=== PATIENT | male | born 1955 | race Caucasian/White ===

== ENCOUNTER 2016-07-05 14:24 | Inpatient (IN) | payer OTHER ==
[~2016-07-05] VITALS: Ht 177.8 cm; Wt 107.0 kg
--- NOTE | ~2016-07-05 | EKG ---
[address] [address] ELECTROCARDIOGRAM REPORT Name: RIO POTTER Room #: 208-P ADM IN M.R.#: [id number] Admission: 07/05/16 Attend Phys: Lyndsay Donis MD Discharge: Date of : 55 Report #: [id number] THIS REPORT FOR: //name// [facility] ED Test Date: 2016-07-05 Test Time: 17:11:35 Pat Name: RIO HUMOND Department: Room: 208 Gender: M Tone Cabinet Assembler: MZOOK : 1955 Requested By: Aileen Musa Order Number: [id number] MD: Jabier Marino Measurements Intervals [place] Rate: 67 P: 23 IL: 111 QRS: 6 QRSD: 93 T: 10 QT: 427 QTc: 451 Interpretive Statements Sinus rhythm Borderline short IL interval Compared to ECG 07/05/2016 14:29:29 No significant change Electronically Signed On 07-06-2016 16:39:24 CARE ATTENDANT by Jabier Marino [email or web address] <ELECTRONICALLY SIGNED> By: Jabier Marino MD 07/06/16 1639 1711 1711 Jabier Marino MD /SINDHU
--- NOTE | ~2016-07-05 | 2DMMODE ---
[facility] [place] [address] 2 D/M-MODE ECHOCARDIOGRAM Name: TARIQRIO PETTY Room #: 208-P [facility] IN .R.#: [id number] Admission: 07/05/16 Attend Phys: Lyndsay Donsi Discharge: Date of : 55 Date of Service: 07/06/16 0845 Report #: [id number] THIS REPORT FOR: //name// Transthoracic Echocardiography Ordering physician: Lyndsay Donis Referring physician: Debra Palacios Nikoloz G. Customs Manager: Sharona Mcfarland Indications/History: Chest pain. Hx: HLP, family history BP: 117 / HR: 70bpm Height: 70in Weight: 235.5lb 75 Study data: M-mode, complete 2D, complete spectral Doppler, and color Doppler. Location: Echo laboratory. [employer]. Image quality was adequate. 2D measurements Normal Normal LVID ED 52.7mm 36-57 IVS ED 9.7mm 6-11 LVID ES 39.8mm 23-40 LVPW ED 10mm 6-11 LA volume 28ml/m2 16-28 AoRoot diam 35.4mm 21-37 index ED LVOT diameter 21mm 18-23 Findings: Left ventricle: The cavity size was normal. Wall thickness was normal. Systolic function was mildly reduced. The estimated ejection fraction was in the range of 45% to 50%. Right ventricle: The cavity size was normal. Systolic function was normal. Right atrium: The atrium was normal in size. Left atrium: The atrium was normal in size. Volume index: 28ml/m2 (S). Aortic valve: Structurally normal valve. Doppler: There was no stenosis. Trivial regurgitation. Peak velocity: 145.7cm/s (S). Mitral valve: Structurally normal valve. Doppler: [facility] [address] [place] [address] 2 D/M-MODE ECHOCARDIOGRAM Name: RIO POTTER Room #: 208-P [facility] IN M.José.#: [id number] Admission: 07/05/16 Attend Phys: Lyndsay Donis Discharge: Date of : 55 Date of Service: 07/06/16 0845 Report #: [id number] There was no evidence for stenosis. Trivial regurgitation. Peak E-wave velocity: 85.7cm/s. Peak gradient: 2.9mm Hg (D). Peak A-wave velocity: 68.5cm/s. Tricuspid valve: Structurally normal valve. Doppler: There was no evidence for stenosis. Trivial regurgitation. Regurgitant peak velocity: 204.6cm/s. Peak RV-RA gradient: 17mm Hg (S). Pulmonic valve: Structurally normal valve. Doppler: There was no evidence for stenosis. Trivial regurgitation. Pericardium: There was no pericardial effusion. Aorta: Aortic root: The aortic root was normal in size. Pulmonary artery: Systolic pressure was estimated to be 22mm Hg. Diastolic function: Features are consistent with a pseudonormal left ventricular filling pattern, with concomitant abnormal relaxation and increased filling pressure (grade 2 diastolic dysfunction). Systemic veins: Inferior vena cava: The vessel was normal in size; the respirophasic diameter changes were in the normal range (= 50%). Conclusions 1. Left ventricle: The cavity size was normal. Wall thickness was normal. Systolic function was mildly reduced. The estimated ejection fraction was in the range of 45% to 50%. 2. Right ventricle: The cavity size was normal. 3. Left atrium: The atrium was normal in size. 4. Aortic valve: Structurally normal valve. Trivial regurgitation. 5. Mitral valve: Structurally normal valve. Trivial regurgitation. 6. Tricuspid valve: Trivial regurgitation. 7. Pericardium, extracardiac: There was no pericardial effusion. <ELECTRONICALLY SIGNED> By: Jabier Marino MD 07/06/16 1512 0845 11 Jabier Marino MD /xenia
--- NOTE | ~2016-07-05 | EKG ---
[address] [address] ELECTROCARDIOGRAM REPORT Name: RIO POTTER Room #: 170-9 ADM IN M.R.#: [id number] Admission: 07/05/16 Attend Phys: Lyndsay Donis MD Discharge: Date of : 55 Report #: [id number] THIS REPORT FOR: //name// [facility] ED Test Date: 2016-07-05 Test Time: 14:29:29 Pat Name: RIO POTTER Department: Room: 170 Gender: M Telemarketing Supervisor: Conrado ANDERSON RN : 1955 Requested By: Aileen Musa Order Number: [id number] MD: Jabier Marino Measurements Intervals [place] Rate: 81 P: 21 IL: 112 QRS: -6 QRSD: 111 T: 17 QT: 367 QTc: 426 Interpretive Statements Sinus rhythm Borderline short IL interval Inferior infarct, old No previous ECG available for comparison Electronically Signed On 07-05-2016 17:04:05 NUCLEAR MEDICINE MEDICAL DIRECTOR by Jabier Marino [email or web address] <ELECTRONICALLY SIGNED> By: Jabier Marino MD 07/05/16 1704 1429 1429 Jabier Marino MD /SINDHU
--- NOTE | ~2016-07-05 | H ---
[facility] [place] [address] HISTORY AND PHYSICAL Name: TARIQ,RIO PETTY Room #: 208-P [facility] IN M.R.#: [id number] Admission: 07/05/16 Attend Phys: Lyndsay Donis MD Discharge: Date of : 55 Report #: [id number] THIS REPORT FOR: //name// CC: Debra Donis DATE OF SERVICE: 07/05/2016 CHIEF COMPLAINT: Left-sided chest pain. HISTORY OF PRESENT ILLNESS: The patient is a 60-year-old male with multiple medical problems, but no previous cardiac history, who comes today with chest pain. The patient states that his left-sided chest pain started around 7:30 a.m., that woke him up from sleep. The patient describes chest pain as sharp, 9/10, that did not resolve on pain medications, the patient has at home. The patient is on tramadol for his chronic pain. He presented to the Emergency Room. In the Emergency Room, the patient's cardiac evaluation so far has been negative. His blood work was also unremarkable. EKG showed no acute ST segment changes. His troponin levels are negative so far. His 2 more sets are pending. The patient received Dilaudid in the Emergency Room, with some relief. The patient has chronic pain syndrome after a traumatic brain injury, and spinal cord problem. He sustained injury about 3 years ago, and he is followed by pain specialist, as well as he goes to the spine center. So far, he has been hemodynamically stable and afebrile. PAST MEDICAL HISTORY: 1. History of traumatic brain injury about 3 years ago, residual left-sided weakness. 2. Spinal cord injury. 3. Spinal stenosis. 4. Dyslipidemia. 5. Impaired glucose tolerance. 6. Depression. 7. Neurogenic bladder. 8. Chronic pain syndrome. 9. Restless legs syndrome. OUTPATIENT MEDICATIONS: Include aspirin 81 mg a day, calcium carbonate, Flexeril 10 mg as needed for spasms 3 times a day, diclofenac 50 mg b.i.d. with meals, Cymbalta 60 mg a day, Zetia 10 mg a day, Neurontin 600 mg b.i.d., hydrochlorothiazide 25 mg a day, lidocaine patch once a day, omeprazole 20 mg a day, MiraLax 17 grams a day, Mirapex 0.125 mg b.i.d., Crestor 10 mg a day, [address] [address] HISTORY AND PHYSICAL Name: TARIQRIO BENITES JOVANNY Room #: 208-P [facility] IN .R.#: [id number] Admission: 07/05/16 Attend Phys: Lyndsay Donis MD Discharge: Date of : 55 Report #: [id number] scopolamine patch 1 patch every 3 days, Flomax 0.4 mg a day, multivitamins, tramadol 50 mg every 6 hours as needed, Ambien 12.5 mg as needed before sleep and Vitamin B12 injections. FAMILY HISTORY: The patient's brother from coronary artery disease at the age of 50. SOCIAL HISTORY: The patient is on disability. He does not smoke cigarettes and does not drink alcohol. REVIEW OF SYSTEMS: As above in the HPI section, all others negative. PHYSICAL EXAMINATION: GENERAL: The patient is well-nourished, middle-aged man who is in no apparent distress. VITAL SIGNS: Blood pressure is 123/66, heart rate is 73 and regular, respiration is 21, temperature is 98.1. HEENT: Pupils are equal. Eye movements are normal. Sclerae are anicteric. NECK: Supple. Thyromegaly palpated. Oral mucosa is moist. The patient has no JVD. Carotid bruits are not appreciated. RESPIRATORY: Chest more symmetrical with breathing. Respiratory sounds are normal bilaterally. The patient has no wheezes or crackles. CARDIOVASCULAR: He has regular rhythm and rate. The patient has no murmurs, gallops or rubs. GASTROINTESTINAL: Abdomen is soft, nondistended and nontender. Bowel sounds are present. He has no hepatomegaly or splenomegaly. MUSCULOSKELETAL: Range of motion is normal. He has no edema, cyanosis or clubbing. NEUROLOGIC: The patient is alert and oriented x 3. He has mild right lower extremity weakness. SKIN: Dry and warm. The patient has no skin lesions. LABORATORY DATA: Comprehensive metabolic profile is essentially normal. Troponin is undetectable. Coagulation profile is normal. CBC shows chronic anemia, with hemoglobin of 13.4. Urinalysis is unremarkable. The patient had chest x-ray, that is negative. EKG shows normal sinus rhythm, without acute findings. ASSESSMENT AND PLAN: 1. Acute onset of left-sided chest pain, severe, details as above. So far, there is no evidence of acute coronary syndrome. We will proceed with further evaluation, and complete 3 sets of cardiac enzymes. I am ordering cardiac echo, and we will ask operations business partner to evaluate the patient. Consultation is very much appreciated. We will also order CT angiography of the chest to rule out pulmonary embolism or aortic dissection. The patient will be monitored in [address] [place] [address] HISTORY AND PHYSICAL Name: RIO POTTER Room #: 208-P [facility] IN .R.#: [id number] Admission: 07/05/16 Attend Phys: Lyndsay Donis MD Discharge: Date of : 55 Report #: [id number] telemetry unit. 2. Chronic pain syndrome. Home medications will be continued unchanged. 3. Depression. Stable. The patient is on Cymbalta, which will be continued. 4. Dyslipidemia. We will check fasting lipid profile. Crestor dose will be adjusted as necessary. 5. Deep venous thrombosis prophylaxis. SubQ Lovenox. <ELECTRONICALLY SIGNED> By: Lyndsay Dnois MD 07/06/16 1449 1731 1841 Lyndsay Donis MD /nt
--- NOTE | ~2016-07-05 | CARDNUC ---
[facility] [place] [address] CARDIAC NUCLEAR IMAGING REPORT Name: ROI POTTER JOVANNY Room #: 208-P [facility]#: [id number] Admission: 07/05/16 Attend Phys: Lyndsay Donis Discharge: 07/08/16 Date of : 55 Date of Service: 07/08/16 1239 Report #: [id number] THIS REPORT FOR: //name// CC: Debra Donis DATE OF SERVICE: 07/08/2016 Myocardial perfusion imaging study using regadenoson. REFERRING DOCTOR: Debra Palacios MD INDICATION: Chest pain. GENDER: Male. CORONARY HISTORY: None. CARDIOVASCULAR RISK FACTORS: Age, hypertension, hypercholesterolemia, and family history. CARDIAC MEDICATIONS: Crestor and hydrochlorothiazide. TYPE OF STUDY: The patient underwent a SPECT study. STRESS PROTOCOL: A total of 0.4 mg of regadenoson was injected intravenously, followed by Cardiolite. The patient did not ambulate during the procedure. HEMODYNAMIC DATA: The resting heart rate was 83 beats per minute, with a blood pressure 130/80 mmHg. Following regadenoson, the heart rate increased to 123 beats per minute and the systolic blood pressure decreased to 112 mmHg. The patient had symptoms of chest discomfort, which is nondiagnostic with regadenoson. ELECTROCARDIOGRAM: The resting electrocardiogram revealed sinus rhythm, no specific abnormality. Following regadenoson, there were no significant arrhythmias or ST segment changes. PERFUSION IMAGING: Myocardial perfusion imaging was performed using Cardiolite, 10.0 mCi for the resting images and 32.5 mCi for the stress images. This was a same-day rest-stress imaging protocol. Gated SPECT images were obtained. Comparison of the post-pharmacologic stress and rest images revealed homogeneous uptake of isotope within all myocardial segments. The gated portion of the study revealed normal global and segmental LV systolic function, ejection fraction of 57%. [facility] [place] [address] CARDIAC NUCLEAR IMAGING REPORT Name: RIO POTTER Room #: 208-P [facility]..#: [id number] Admission: 07/05/16 Attend Phys: Lyndsay Donis Discharge: 07/08/16 Date of : 55 Date of Service: 07/08/16 1239 Report #: [id number] IMPRESSION: 1. Clinical response, nondiagnostic. 2. Stress ECG response, nonischemic. 3. Perfusion imaging, nonischemic. 4. Ventricular function, normal. CONCLUSION: This study is of low probability for inducible ischemia or prior infarct. There is normal global and segmental LV systolic function. <ELECTRONICALLY SIGNED> By: Jabier Marino MD 07/09/16 0756 1239 1248 Jabier Marino MD /nt
--- NOTE | ~2016-07-05 | HC ---
[facility] [place] [address] CONSULTATION Name: RIO POTTER JOVANNY Room #: 208-P [facility] IN M.R.#: [id number] Admission: 07/05/16 Attend Phys: Lyndsay Donis MD Discharge: Date of : 55 Report #: [id number] THIS REPORT FOR: //name// CC: Debra Donis DATE OF SERVICE: 07/06/2016 INDICATION: Chest pains. HISTORY OF PRESENT ILLNESS: This is a 60-year-old gentleman presenting with left-sided chest pain. He woke up today with a pain on the left side of his chest, nonradiating. It persisted throughout the day and he presented to the ER for an evaluation. There has been some intermittent shortness of breath. He denies any symptoms of diaphoresis, palpitations, or congestion. He does have a history of chronic back pains, with limited ambulation. Two days ago, he had getting rehab over at the spine center. This involved lifting weights, to help with his posture. PAST MEDICAL HISTORY: 1. Chronic back pain with pain syndrome. 2. Spinal stenosis. 3. History of hypercholesterolemia. 4. 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 5. Hypercholesterolemia, edema, GERD, restless leg syndrome. ALLERGIES: None. MEDICATIONS: Include aspirin, Flexeril, Zetia 10 mg, Crestor 10 mg, Neurontin, Cymbalta, hydrochlorothiazide 25 mg daily, omeprazole 20 mg daily, scopolamine patch, Flomax 0.4 mg daily. SOCIAL HISTORY: Denies tobacco use. FAMILY HISTORY: Brother had a history of an SD at age 50. REVIEW OF SYSTEMS: A full 10-point review of systems performed. Only the pertinent positives and negatives are described in the HPI. PHYSICAL EXAMINATION: VITAL SIGNS: Blood pressure is 130/70, heart rate is 60 beats per minute. GENERAL APPEARANCE: This is a well-developed, well-nourished male in no acute respiratory distress. HEAD AND EYES: Normocephalic. Sclerae are anicteric. ENT: Oral mucosa moist. NECK: Supple. [facility] [address] [place] [address] CONSULTATION Name: RIO POTTER Room #: 208-P [facility] IN .R.#: [id number] Admission: 07/05/16 Attend Phys: Lyndsay Donis MD Discharge: Date of : 55 Report #: [id number] LUNGS: Clear to auscultation. CARDIAC: Regular rate and rhythm, S1, S2 positive. ABDOMEN: Soft. EXTREMITIES: No major joint deformities. No edema. LABORATORY VALUES: Serial troponins are negative. Sodium is 140, creatinine is 1.3. White count 7.3, hemoglobin 13.4. ECG reveals sinus rhythm. ASSESSMENT: 1. Chest pain syndrome, the differential diagnosis includes musculoskeletal, GI, pleuritic, etc. However, he does have significant coronary artery disease risk factors including family history and hypercholesterolemia. He will need to undergo an ischemic evaluation. Due to his physical limitations, he will be scheduled for a pharmacologic nuclear stress test. 2. Hypercholesterolemia, continue with statin therapy. 3. Edema, continue with diuretic. 4. Gastroesophageal reflux disease, continue with omeprazole. 5. Chronic back pain/spinal stenosis. Thank you for allowing me to participate in the care of your patient. <ELECTRONICALLY SIGNED> By: Jabier Marino MD 07/07/16 0748 1301 2237 Jabier Marino MD /nt
[~2016-07-05 14:24] MED LIST: AMOXICILLIN 50500 M1 PO; CLARITIN-D 12 H1 TA1 PO; MOTION RELIEF25 MG PO; NO HOME MEDS; ZOFRAN ODT4 MG PO
[2016-07-05 14:25] VITALS: BP 159/91
[2016-07-05 15:03] LABS: ABSOLUTE NEUTROPHILS 4.5 thou/uL (1.4-8.2); BASOPHILS 1.1 % (0.0-2.0); EOSINOPHILS 3.5 % (0.0-3.0); HEMATOCRIT 39.4 % (42.0-52.0); HEMOGLOBIN 13.4 gm/dL (14.0-18.0); LYMPHOCYTES 28.9 % (24.0-44.0); MCH 31.9 pg (26.0-34.0); MONOCYTES 5.5 % (1.0-8.0); PLATELET COUNT 228 thou/uL (150-400); RBC 4.19 mil/uL (4.50-6.00); RDW 12.9 % (10.5-14.5); WBC 7.3 thou/uL (4.0-11.0)
[2016-07-05 15:13] LABS: ANION GAP 9 mmol/L (7-16); BUN 18 mg/dL (7-18); CALCIUM 8.9 mg/dL (8.5-10.1); CHLORIDE 104 mmol/L (98-107); CO2 27 mmol/L (21-32); CREATININE 1.3 mg/dL (0.6-1.3); GLUCOSE 144 mg/dL (70-99); SODIUM 140 mmol/L (136-145)
[2016-07-05 15:25] LABS: APTT 25.2 Seconds (24.5-32.8)
[2016-07-05 15:35] LABS: MANUAL DIFF NO
[2016-07-05 15:44] LABS: ALBUMIN 3.6 g/dL (3.4-5.0); ALKALINE PHOSPHATASE 64 U/L (46-116); NT-PRO BRAIN NAT PEPTIDE 72 pg/mL (<300); SGOT 14 U/L (15-37); SGPT 21 U/L (30-65); TOTAL BILIRUBIN 0.4 mg/dL (<0.1-1.0); TOTAL PROTEIN 6.8 g/dL (6.4-8.2); TROPONIN-I < 0.04 ng/mL (<0.04-0.07)
[2016-07-05] MEDS ORDERED: TRAMADOL 50 MG50 MG PO (17:09)
[2016-07-05] MEDS ORDERED: ASPIR 8181 MG PO (17:10)
[2016-07-05] MEDS ORDERED: DICLOFENAC POTA50 MG PO (17:10)
[2016-07-05] MEDS ORDERED: CYMBALTA60 MG PO (17:11)
[2016-07-05] MEDS ORDERED: AMBIEN CR12.5 MG PO (17:11)
[2016-07-05] MEDS ORDERED: OMEPRAZOLE 20 M20 M1 PO (17:11)
[2016-07-05] MEDS ORDERED: FLOMAX0.4 MG PO (17:12)
[2016-07-05] MEDS ORDERED: TRANSDERM-SCO1 PATCH TD (17:13)
[2016-07-05] MEDS ORDERED: CRESTOR10 MG PO (17:13)
[2016-07-05] MEDS ORDERED: NEURONTIN600 MG PO (17:14)
[2016-07-05] MEDS ORDERED: HYDROCHLOROTHIA25 M2 PO (17:14)
[2016-07-05] MEDS ORDERED: LIDODERM 5%1 PATC1 TRANSDERM (17:14)
[2016-07-05] MEDS ORDERED: MIRAPEX0.125 MG PO (17:14)
[2016-07-05] MEDS ORDERED: ZETIA10 MG PO (17:15)
[2016-07-05] MEDS ORDERED: CALCIUM 500 +1 EAC5 PO (17:15)
[2016-07-05] MEDS ORDERED: VITAMIN B-1100 M1 PO (17:16)
[2016-07-05] MEDS ORDERED: B12INJ IM (17:16)
[2016-07-05] MEDS ORDERED: FLEXERIL PO (17:16)
[2016-07-05] MEDS ORDERED: MIRALAX17 GM PO (17:17)
[2016-07-05 18:11] VITALS: BP 116/75
[2016-07-05 19:57] VITALS: BP 121/67
[2016-07-06 00:20] VITALS: BP 128/73
[2016-07-06 01:30] LABS: CHOLESTEROL 271 mg/dL (<200); HDL CHOLESTEROL 29 mg/dL (>40); TC:HDL 9.3 Ratio (Not establshd); TRIGLYCERIDE 530 mg/dL (<150); TROPONIN-I < 0.04 ng/mL (<0.04-0.07); VLDL 106 mg/dL (<40)
[2016-07-06 04:36] VITALS: BP 111/75
[2016-07-06 08:00] VITALS: BP 113/70
[2016-07-06 12:00] VITALS: BP 127/72
[2016-07-06 16:00] VITALS: BP 123/76
[2016-07-06 19:45] VITALS: BP 129/79
[2016-07-07 04:30] VITALS: BP 120/71
[2016-07-07 07:15] VITALS: BP 133/71
[2016-07-07 12:15] VITALS: BP 122/68
[2016-07-07 19:37] VITALS: BP 135/72
[2016-07-08 04:10] LABS: ABSOLUTE NEUTROPHILS 4.4 thou/uL (1.4-8.2); BASOPHILS 0.4 % (0.0-2.0); EOSINOPHILS 5.5 % (0.0-3.0); HEMATOCRIT 38.8 % (42.0-52.0); HEMOGLOBIN 13.2 gm/dL (14.0-18.0); LYMPHOCYTES 27.2 % (24.0-44.0); MCH 31.8 pg (26.0-34.0); MCV 93.6 fL (80.0-100.0); MONOCYTES 7.8 % (1.0-8.0); PLATELET COUNT 198 thou/uL (150-400); POLYS 59.1 % (36.0-66.0); RBC 4.15 mil/uL (4.50-6.00); RDW 12.8 % (10.5-14.5); WBC 7.4 thou/uL (4.0-11.0)
[2016-07-08 04:17] LABS: CALCIUM 9.5 mg/dL (8.5-10.1); CREATININE 1.4 mg/dL (0.6-1.3)
[2016-07-08 04:23] VITALS: BP 134/71
[2016-07-08 04:45] LABS: MANUAL DIFF NO
[2016-07-08 08:55] VITALS: BP 136/81
[2016-07-08 12:23] VITALS: BP 142/75
[2016-07-08 13:32] VITALS: BP 142/75
== END 2016-07-08 14:26 | disposition home or self-care (01) | DRG 313 ==
LOC: ER 14:24 → EROBS 16:10 → 2N 16:10
PROVIDERS: Emergency Medicine; Internal Medicine Endocrinology, Diabetes & Metabolism
DX: R07.89 Other chest pain (principal); E78.5 Hyperlipidemia, unspecified; N31.9 Neuromuscular dysfunction of bladder, unspecified; R00.0 Tachycardia, unspecified; E66.9 Obesity, unspecified; K21.9 Gastro-esophageal reflux disease without esophagitis; M48.00 Spinal stenosis, site unspecified; F32.9 Major depressive disorder, single episode, unspecified; M54.9 Dorsalgia, unspecified; G25.81 Restless legs syndrome; G89.4 Chronic pain syndrome; E78.00 Pure hypercholesterolemia, unspecified; Z87.891 Personal history of nicotine dependence; I25.2 Old myocardial infarction; Z79.82 Long term (current) use of aspirin; Z79.899 Other long term (current) drug therapy; Z87.820 Personal history of traumatic brain injury; Z98.890 Other specified postprocedural states; Z88.8 Allergy status to other drugs, medicaments and biological substances; Z82.49 Family history of ischemic heart disease and other diseases of the circulatory system; Z68.33 Body mass index [BMI] 33.0-33.9, adult; Z23 Encounter for immunization
CPT/HCPCS: 10081

== ENCOUNTER 2017-03-20 14:45 | Emergency (ER) | payer OTHER ==
[~2017-03-20] VITALS: Ht 177.8 cm; Wt 108.9 kg
[~2017-03-20 14:45] MED LIST changes: +AMBIEN CR12.5 MG PO; +ASPIR 8181 MG PO; +B12INJ IM; +CALCIUM 500 +1 EAC5 PO; +CRESTOR10 MG PO; +CYMBALTA60 MG PO; +DICLOFENAC POTA50 MG PO; +FLEXERIL PO; +FLOMAX0.4 MG PO; +HYDROCHLOROTHIA25 M2 PO; +LIDODERM 5%1 PATC1 TRANSDERM; +MIRALAX17 GM PO; +MIRAPEX0.125 MG PO; +NEURONTIN600 MG PO; +OMEPRAZOLE 20 M20 M1 PO; +TRAMADOL 50 MG50 MG PO; +TRANSDERM-SCO1 PATCH TD; +VITAMIN B-1100 M1 PO; +ZETIA10 MG PO
[2017-03-20] MEDS ORDERED: HYDROCODONE-AP1 EAC6 PO (15:12)
[2017-03-20] MEDS ORDERED: NORCO 5-325 TA1 EACH PO (16:18)
[2017-03-20] MEDS ORDERED: IBUPROFEN 600600 M1 PO (16:19)
[2017-03-20 16:39] VITALS: BP 118/79
== END 2017-03-20 16:40 | disposition home or self-care (01) ==
LOC: ER 14:45
DX: S20.221A Contusion of right back wall of thorax, initial encounter (principal); Z87.891 Personal history of nicotine dependence; Z88.8 Allergy status to other drugs, medicaments and biological substances; V89.2XXA Person injured in unspecified motor-vehicle accident, traffic, initial encounter; Y93.89 Activity, other specified; Y92.89 Other specified places as the place of occurrence of the external cause; Y99.8 Other external cause status